=== PATIENT | female | born 1970 | race Caucasian/White ===

== ENCOUNTER 2018-03-02 07:24 | Day surgery (SDC) | payer BC ==
[2018-03-01 14:42] VITALS: BMI 28.4
[2018-03-02 11:01] VITALS: BP 115/64; PULSE 65; TEMP 97.9
== END 2018-03-02 11:15 | disposition home or self-care (01) ==
LOC: JASU-ENDO 07:24
PROVIDERS: ATTEND Internal Medicine Gastroenterology
PROC: 0DJD8ZZ Inspection of Lower Intestinal Tract, Via Natural or Artificial Opening Endoscopic (ICD-10-PCS; principal; 2018-03-02 09:00)
DX: Z12.11 Encounter for screening for malignant neoplasm of colon (principal); Z80.0 Family history of malignant neoplasm of digestive organs; Z83.71 Family history of colonic polyps; Q43.8 Other specified congenital malformations of intestine; K64.8 Other hemorrhoids
CPT/HCPCS: 36415; 84703